=== PATIENT | female | born 1995 | race Caucasian/White ===

== ENCOUNTER 2016-07-15 18:13 | Emergency (ER) | payer BC, OTHER ==
[2016-07-15] MEDS ORDERED: KETOROLAC 60 MG/2 ML VIAL IM ONE (18:33)
[2016-07-15 18:39] VITALS: RESP 20; TEMP 96.9
[2016-07-15 18:59] LABS: BASOPHILS # (AUTO) 0.05 10*3/UL; BASOPHILS % (AUTO) 0.5 % (0-1); EOSINOPHILS # (AUTO) 0.23 10*3/UL; EOSINOPHILS % (AUTO) 2.4 % (0-8); HEMATOCRIT 41.3 % (37.0-47.0); HEMOGLOBIN 14.7 g/dL (12.0-16.0); LYMPHOCYTES # (AUTO) 2.68 10*3/uL; MEAN CORPUSCULAR HEMOGLOBIN 30.7 PG (27-31); MEAN CORPUSCULAR HGB CONC 35.6 g/dL (33-37); MEAN CORPUSCULAR VOLUME 86.2 FL (81-99); MEAN PLATELET VOLUME 10.9 FL (7.4-12.2); MONOCYTES # (AUTO) 0.58 10*3/UL (0.3-0.8); MONOCYTES % (AUTO) 5.9 % (5-15); NEUTROPHILS % (AUTO) 63.6 % (50-80); PLATELET MORPHOLOGY COMMENT NORMAL MORPHOLOGY (NORM); RBC MORPHOLOGY COMMENT NORMAL MORPHOLOGY (NORM); RED BLOOD COUNT 4.79 10^6/uL (4.20-5.40); WBC MORPHOLOGY COMMENT NORMAL MORPHOLOGY (NORM)
--- NOTE | 2016-07-15 21:38 | PDOC ---
Abdomen/Flank HPI - General Chief Complaint: Abdomen Pain Stated Complaint: "ENDOMETRIOSIS PAIN" Date Seen by Provider: 07/15/16 Time Seen by Provider: 18:20 Source: POSITIVE: Patient Exam Limitations: POSITIVE: No limitations Nurse's Notes Reviewed & Considered: Yes - History of Present Illness Initial Comments: The patient is a 20-year-old female. She states that for the past 6 or 7 hours she has had some vague lower abdominal discomfort. She states that she has a long-standing history of endometriosis and states that she believes this is what is causing her lower abdominal discomfort. She states she was diagnosed in February 2015 with endometriosis after having gone a laparoscopy. She was on Lupron for her endometriosis and had her last shot of Lupron in March. She discontinued the Lupron because she states this produced hot flashes and dizziness. Her last menstrual period was 19 June. She states he has monthly episodes of similar discomfort. She is 1 para 1 aborta 0 and has a 3- year-old child. No nausea, vomiting, diarrhea, melena, hematochezia or hematemesis. No dysuria or hematuria. No vaginal bleeding presently. Body Location Affected: REPORTS: Abdomen Timing: REPORTS: Constant Duration: 4-6 hours Severity: Mild Quality: REPORTS: Other (Discomfort) Abdominal Pain Onset Location: REPORTS: RLQ, LLQ Abdominal Pain Radiation: REPORTS: No radiation Context: REPORTS: None Modifying Factors: improves with: Nothing Associated Symptoms: REPORTS: Denies symptoms Similar Symptoms Previously: Yes (as above) Recent Care Received: REPORTS: Denies Any Prior Injuries Related to Current Complaint?: No - Patient Home Medications Home Medications: Home Medications Hydrocodone/Acetaminophen [Vicodin 5-300 mg Tablet] 1 tab PO PRN PRN 07/15/16 Ibuprofen 200 mg PO PRN PRN 07/15/16 Naproxen Sodium [Aleve] 220 mg PO PRN PRN 07/15/16 - Patient Allergies Allergies/Adverse Reactions: Allergies Allergy/AdvReac Type Severity Reaction Status Date / Time cephalexin monohydrate Allergy HIVES Verified 07/15/16 18:40 [From Keflex] ciprofloxacin [From Cipro] Allergy HIVES Verified 07/15/16 18:40 ciprofloxacin HCl Allergy HIVES Verified 07/15/16 18:40 [From Cipro] gabapentin Allergy HIVES Verified 07/15/16 18:40 sulfamethoxazole Allergy HIVES Verified 07/15/16 18:40 [From Bactrim] trimethoprim [From Bactrim] Allergy HIVES Verified 07/15/16 18:40 Past Medical History - heen HEENT History: Denies History Cardiovascular History: Denies History Respiratory History: Denies History Gastrointestinal History: Denies History Genitourinary History: Denies History Endocrine History: Denies History Musculoskeletal History: Denies History Prosthesis or Implant: No Neurological History: Denies History Blood Disorders: Denies History Psychiatric History: Denies History Female Reproductive History: Endometriosis Obstetrical History: Delivery Cancer History: Denies History In Past Year Been Physically Harmed or Verbally Threatened: No History of MDRO: No Tobacco Use: Never Smoker Alcohol Use: Rarely Substance Use Type: None Previous Surgical History: Yes Type / Date of Surgery: Significant Family History: No pertinent family hx Past Medical History Reviewed: Reviewed - No Changes ROS - Limitations ROS Limitations: No Limitations Constitution: REPORTS: Denies Symptoms Cardiovascular: REPORTS: Denies Cardiac Symptoms Respiratory: REPORTS: Denies Resp Symptoms Neurological: REPORTS: Denies Neuro Symptoms Gastrointestinal: REPORTS: Abdominal Pain (Mild, lower abdomen) Endocrine: REPORTS: Denies Symptoms Musculoskeletal: REPORTS: Denies MS Symptoms Genitourinary: REPORTS: Denies Symptoms Eyes: REPORTS: Denies Symptoms ENT: REPORTS: Denies Symptoms Skin: REPORTS: Denies Skin Symptoms Lympathic: REPORTS: Denies Lympathic Symptoms Immunologic: POSITIVE: Denies Symptoms Psychiatric: POSITIVE: Denies Psych Symptoms Abdominal/Flank Pain PE - General Appearance General Appearance: POSITIVE: Alert, Cooperative, No Acute Distress, No Evidence of Trauma - HEENT HEENT: POSITIVE: Head Inspection Nml, Eyes Inspection Nml, Ears Inspection Nml, Nose Inspection Nml, Oral/Dental Inspect. Nml, Pharynx Inspect. Nml, PERRL, EOMI - Neck Neck: POSITIVE: Normal Inspection, No Apparent Injury - Respiratory Respiratory: POSITIVE: No Respiratory Distress, Breath Sounds Normal, Chest Non- Tender - Cardiovascular Cardiovascular: POSITIVE: Regular Rate and Rhythm, Heart Sounds Normal, Equal Pulses, Strong Pulses Peripheral Pulses: Radial (R): 2+, Radial (L): 2+ - Chest Chest: POSITIVE: Non Tender - Abdomen Abdomen: Soft: (All Quadrants), Normal Bowel Sounds: (All Quadrants), Denies Tenderness: (LUQ), (RUQ), No Splenomegaly: (All Quadrants), No Hepatomegaly: ( All Quadrants), No Guarding: (All Quadrants), No Rebound: (All Quadrants), No Palpable Pulse: (All Quadrants), No Palpabale Mass: (All Quadrants), No Distention: (All Quadrants), No Rigidity: (All Quadrants), Tenderness Noted: ( RLQ), (LLQ) (mild) Additional Abdominal Details: Abdominal examination shows bowel sounds to be active. Patient has expressed is very mild discomfort on firm deep direct palpation over the lower abdomen bilaterally. No masses or organomegaly or rebound. 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 There is no intrauterine gestation seen and no evidence of ectopic . Lab Results Reviewed: Yes Lab Results:: Laboratory Results 07/15/16 07/15/16 07/15/16 Range/Units 18:56 19:43 20:01 WBC 9.75 (4.8-10.8) 10^3/uL RBC 4.79 (4.20-5.40) 10^6/uL Hgb 14.7 (12.0-16.0) g/dL Hct 41.3 (37.0-47.0) % MCV 86.2 (81-99) FL MCH 30.7 (27-31) PG MCHC 35.6 (33-37) g/dL RDW Std Deviation 41.0 (39-50) fL RDW Coeff of Irley 13.3 (11.5-14.5) % Plt Count 202 (140-350) 10*3/uL MPV 10.9 (7.4-12.2) FL Immature Gran % (Auto) 0.1 (0-5) % Neut % (Auto) 63.6 (50-80) % Lymph % (Auto) 27.5 (10-50) % [place] % (Auto) 5.9 (5-15) % Eos % (Auto) 2.4 (0-8) % Baso % (Auto) 0.5 (0-1) % Immature Gran # (Auto) 0.01 10*3/UL Neut # (Auto) 6.20 10*3/UL Lymph # (Auto) 2.68 10*3/uL [place] # (Auto) 0.58 (0.3-0.8) 10*3/UL Eos # (Auto) 0.23 10*3/UL Baso # (Auto) 0.05 10*3/UL WBC Morphology Comment Normal morphology (NORM) Plt Morphology Comment Normal morphology (NORM) RBC Morph Comment Normal morphology (NORM) Serum HCG, Qual Positive HCG, Quant 25.23 mIU/ML Blood Type A POSITIVE - Patient's Progress Pain Medication Addressed: POSITIVE: Not Applicable School/Work Release Addressed: POSITIVE: Not Applicable Re-examine Time: 21:00 Re-Examine Comment: Patient remained in no distress throughout her stay in the emergency room. Diagnosis of her early discussed with patient. 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 Patient to return here anytime if condition worsens in any way. CD of her ultrasound was given to the patient as well as a copy of her laboratory values. Status: POSITIVE: Unchanged, Re-Examined - Consult Counseled: POSITIVE: Patient, RE: Lab Results, RE: Radiology Results, RE: DX, RE : Need for F/U Patient Care Time - Estimated PCT Patient Care Time (In Minutes): 45 Vital Signs - Recent Vital Signs Vital Signs: Vital Signs (Last 8 hours) Temp Pulse Resp BP Pulse Ox 07/15/16 18:14 96.9 F 100 20 132/91 96 - VS Reviewed Vital Signs Reviewed: Yes Discharge Clinical Impression: Abdominal pain in Discharge Disposition: Discharged to Home Condition: Stable Patient Instructions Given at Discharge: (ED), Acute Abdominal Pain ( ED) Additional Instructions: Your test is positive. He'll quantitative hCG is only mildly elevated. Pelvic ultrasound does not show any intrauterine or any ectopic , because you are so early in your . Since you have been having some abdominal discomfort there is concern for the possibility of an ectopic , and you therefore need to follow-up with your clothing and textiles teacher. Please follow-up with your clothing and textiles teacher in 2-3 days and he or she will repeat your quantitative hCG and reevaluate shoe. Return here anytime if condition worsens in any way whatsoever, or if discomfort becomes worse. Follow Up With: NONE,NONE [Primary Care Provider] - (Instructions as above. Follow-up with your clothing and textiles teacher in 2-3 days. Return here anytime if condition worsens in any way.)
== END 2016-07-15 21:48 | disposition home or self-care (01) ==
LOC: ER 18:13
DX: O26.891 Other specified pregnancy related conditions, first trimester (principal); R10.32 Left lower quadrant pain; R10.31 Right lower quadrant pain
CPT/HCPCS: 36415; 76801; 84702; 84703; 85025; 86900; 86901; 96372; 99282 ×2; J1885